=== PATIENT | female | born 1925 | race Caucasian/White ===

== ENCOUNTER 2017-05-02 18:11 | Inpatient (IN) | payer OTHER, MEDICAID ==
[~2017-05-02] VITALS: Ht 137.2 cm; Wt 51.5 kg
[~2017-05-02 18:11] MED LIST: AMLO-511 PO; APIX2.5T PO; ATOR20TA86 PO; FURO20 PO; LORA10TA7 PO; METO25TA3 PO; SLOWK8 PO
[2017-05-02] MEDS ORDERED: PRAV10TA39 PO (18:20)
[2017-05-02 19:53] LABS: BASOPHILS % (AUTO) 0.1 % (0.0-2.0); EOSINOPHILS % (AUTO) 0.4 % (1.0-6.0); HEMATOCRIT 36.6 % (36-46); HEMOGLOBIN 12.4 g/dL (12.0-16.0); LYMPHOCYTES # (AUTO) 1.5 K/uL (1.0-4.8); LYMPHOCYTES % (AUTO) 11.2 % (22.0-44.0); MEAN CORPUSCULAR HEMOGLOBIN 30.8 pg (26.0-34.0); MEAN CORPUSCULAR HGB CONC 33.8 G/dL (31.0-37.0); MEAN CORPUSCULAR VOLUME 91 fL (80-100); MONOCYTES # (AUTO) 0.9 K/uL (0.1-1.0); MONOCYTES % (AUTO) 6.8 % (2.0-9.0); NEUTROPHILS # (AUTO) 10.8 K/uL (1.8-7.7); NEUTROPHILS % (AUTO) 81.5 % (40.0-70.0); PLATELET COUNT (AUTO) 133 K/uL (150-450); RED BLOOD CELL COUNT(AUTO) 4.02 MIL/uL (4.00-5.20); RED CELL DISTRIBUTION WIDTH 14.6 % (11.5-14.5); WHITE BLOOD COUNT (AUTO) 13.3 K/uL (4.5-11.0)
[2017-05-02 19:54] LABS: ANION GAP 8 mmol/L (8-16); CALCIUM, TOTAL 8.3 mg/dL (8.8-10.5); CARBON DIOXIDE 27 mmol/L (22-29); CHLORIDE 100 mmol/L (98-107); CREATININE 1.25 mg/dL (0.60-1.30); GLOMERULAR FILTR. RATE CALC 40 mL/min (>60); SODIUM SERUM 135 mmol/L (136-145); UREA NITROGEN, BLOOD 15 mg/dL (7-18)
[2017-05-02 20:00] LABS: INR 1.2 (0.9-1.1); PROTHROMBIN TIME 12.4 SEC (9.4-11.6)
[2017-05-02] MEDS ORDERED: LEVALBUTEROL HCL 0.63 MG/3 ML NEB SOLUTION NEB ONE (20:00)
[2017-05-02] MEDS ORDERED: IPRATROPIUM BROMIDE 0.5 MG/2.5 ML NEB SOLUTION NEB ONE (20:00)
[2017-05-02 20:08] LABS: B-TYPE NATRIURETIC PEPTIDE 463 pg/mL (0-100)
[2017-05-02] MEDS ORDERED: 0.9% SODIUM CHLORIDE 5 ML NEB SOLUTION NEB ONE (20:14)
[2017-05-02 20:18] LABS: ALANINE AMINOTRANSFERASE 23 U/L (12-78); ALBUMIN 2.9 g/dL (3.4-5.0); ASPARTATE AMINOTRANSFERASE 25 U/L (15-37); BILIRUBIN,TOTAL 0.4 mg/dL (0.1-1.0); CREATINE KINASE MB 0.6 ng/mL (0-5); CREATINE KINASE, TOTAL 79 U/L (26-192); TOTAL PROTEIN, SERUM 7.7 g/dL (6.4-8.2)
[2017-05-02 20:27] LABS: APPEARANCE,URINE CLOUDY (CLEAR); GLUCOSE, URINE (UA) NEGATIVE (NEGATIVE); KETONES,URINE NEGATIVE (NEGATIVE); LEUKOCYTE ESTERASE ,URINE MODERATE (NEGATIVE); OCCULT BLOOD,URINE MODERATE (NEGATIVE); PH,URINE 5.5 (5.0-8.0); PROTEIN,URINE POS 1+ (NEGATIVE)
[2017-05-02 20:28] LABS: ADD UA MICROSCOPIC YES
[2017-05-02 20:31] LABS: SQUAMOUS EPITHELIAL CELL,UR Many /LPF (None Seen); WBC,URINE 26-50 /HPF (0-5)
[2017-05-02 20:41] LABS: LACTIC ACID 1.8 mmol/L (0.4-2.0)
[2017-05-02] MEDS ORDERED: ACETAMINOPHEN 325 MG TABLET PO PRN ×2 (21:00→23:15)
[2017-05-02] MEDS: OXYGEN THERAPY IH SCH (21:00)
[2017-05-02] MEDS ORDERED: ONDANSETRON HCL 4 MG/2 ML VIAL IVP PRN (21:00)
[2017-05-02] MEDS ORDERED: 0.9% SODIUM CHLORIDE 10 ML SYRINGE IVP PRN (21:00)
[2017-05-02] MEDS ORDERED: LEVOFLOXACIN 500 MG/D5% WATER 100 ML IV ONE (21:00)
[2017-05-02 22:03] VITALS: BP 153/79
[2017-05-02] MEDS ORDERED: SODIUM CHLORIDE 0.9% 250 ML IV ONE (22:29)
[2017-05-03] MEDS ORDERED: PNEUMOCOCCAL VACCINE POLYVALENT 0.5 ML VIAL [PPSV23] IM ONE (00:15)
[2017-05-03] MEDS: CefTRIAXone 1 GM/DEXTROSE 50 ML IV SCH (00:55)
[2017-05-03 04:42] VITALS: BP 129/75
[2017-05-03 06:36] LABS: BASOPHILS % (AUTO) 0.1 % (0.0-2.0); EOSINOPHILS % (AUTO) 0.7 % (1.0-6.0); HEMATOCRIT 39.4 % (36-46); HEMOGLOBIN 13.2 g/dL (12.0-16.0); LYMPHOCYTES # (AUTO) 1.2 K/uL (1.0-4.8); LYMPHOCYTES % (AUTO) 9.9 % (22.0-44.0); MEAN CORPUSCULAR HEMOGLOBIN 30.8 pg (26.0-34.0); MEAN CORPUSCULAR HGB CONC 33.5 G/dL (31.0-37.0); MEAN CORPUSCULAR VOLUME 92 fL (80-100); MONOCYTES % (AUTO) 7.7 % (2.0-9.0); NEUTROPHILS # (AUTO) 10.1 K/uL (1.8-7.7); NEUTROPHILS % (AUTO) 81.6 % (40.0-70.0); PLATELET COUNT (AUTO) 134 K/uL (150-450); RED BLOOD CELL COUNT(AUTO) 4.28 MIL/uL (4.00-5.20); RED CELL DISTRIBUTION WIDTH 14.9 % (11.5-14.5); WHITE BLOOD COUNT (AUTO) 12.4 K/uL (4.5-11.0)
[2017-05-03 07:10] LABS: ALBUMIN 2.8 g/dL (3.4-5.0); BILIRUBIN,TOTAL 0.4 mg/dL (0.1-1.0); CALCIUM, TOTAL 8.4 mg/dL (8.8-10.5); CREATININE 0.93 mg/dL (0.60-1.30); MAGNESIUM 1.5 mg/dL (1.80-2.40); TOTAL PROTEIN, SERUM 7.8 g/dL (6.4-8.2)
[2017-05-03 07:33] LABS: POTASSIUM 2.9 mmol/L (3.5-5.1)
[2017-05-03 07:38] VITALS: BP 116/75
[2017-05-03] MEDS: PRAVASTATIN SODIUM 10 MG TABLET PO SCH (08:12)
[2017-05-03] MEDS: FUROSEMIDE 20 MG TABLET PO SCH (08:14)
[2017-05-03] MEDS: LORATADINE 10 MG TABLET PO SCH (08:14)
[2017-05-03] MEDS: AmLODIPine BESYLATE 5 MG TABLET PO SCH (08:14)
[2017-05-03] MEDS: METOPROLOL SUCCINATE 25 MG ER TABLET PO SCH ×2 (08:14→21:15)
[2017-05-03] MEDS: POTASSIUM CHLORIDE 8 MEQ ER TABLET PO SCH ×2 (08:14→21:15)
[2017-05-03] MEDS: AZITHROMYCIN 250 MG TABLET PO SCH (08:15)
[2017-05-03] MEDS ORDERED: POTASSIUM CHLORIDE 20 MEQ ER TABLET PO PRN (09:00)
[2017-05-03] MEDS: APIXABAN 2.5 MG TABLET PO SCH ×2 (09:00→21:00)
[2017-05-03] MEDS ORDERED: IPRATROPIUM BROMIDE 0.5 MG/2.5 ML NEB SOLUTION NEB PRN (09:00)
[2017-05-03] MEDS ORDERED: ALBUTEROL SULFATE 2.5 MG/0.5 ML NEB SOLUTION NEB PRN (09:00)
[2017-05-03] MEDS: OXYGEN THERAPY IH SCH (09:11)
[2017-05-03 11:26] VITALS: BP 108/65
[2017-05-03 15:40] VITALS: BP 111/60
[2017-05-03] MEDS ORDERED: MAGNESIUM SULFATE 2 GM in DEXTROSE 5%-WATER 50 ML IV ONE (16:45)
[2017-05-03 20:13] VITALS: BP 93/55
[2017-05-04] VITALS (7 sets, daily range): BP systolic 106–147; BP diastolic 61–76
[2017-05-04] MEDS: CefTRIAXone 1 GM/DEXTROSE 50 ML IV SCH (01:09)
[2017-05-04 06:28] LABS: ANION GAP 8 mmol/L (8-16); CALCIUM, TOTAL 8.4 mg/dL (8.8-10.5); CARBON DIOXIDE 30 mmol/L (22-29); CHLORIDE 104 mmol/L (98-107); CREATININE 0.88 mg/dL (0.60-1.30); GLOMERULAR FILTR. RATE CALC > 60 mL/min (>60); POTASSIUM 3.7 mmol/L (3.5-5.1); SODIUM SERUM 142 mmol/L (136-145); UREA NITROGEN, BLOOD 12 mg/dL (7-18)
[2017-05-04 06:47] LABS: BASOPHILS % (AUTO) 0.5 % (0.0-2.0); EOSINOPHILS % (AUTO) 3.7 % (1.0-6.0); HEMATOCRIT 39.2 % (36-46); HEMOGLOBIN 13.1 g/dL (12.0-16.0); LYMPHOCYTES # (AUTO) 1.9 K/uL (1.0-4.8); LYMPHOCYTES % (AUTO) 20.2 % (22.0-44.0); MEAN CORPUSCULAR HEMOGLOBIN 30.7 pg (26.0-34.0); MEAN CORPUSCULAR HGB CONC 33.5 G/dL (31.0-37.0); MEAN CORPUSCULAR VOLUME 92 fL (80-100); MONOCYTES # (AUTO) 0.7 K/uL (0.1-1.0); MONOCYTES % (AUTO) 8.1 % (2.0-9.0); NEUTROPHILS # (AUTO) 6.3 K/uL (1.8-7.7); NEUTROPHILS % (AUTO) 67.5 % (40.0-70.0); PLATELET COUNT (AUTO) 153 K/uL (150-450); RED BLOOD CELL COUNT(AUTO) 4.27 MIL/uL (4.00-5.20); WHITE BLOOD COUNT (AUTO) 9.3 K/uL (4.5-11.0)
[2017-05-04] MEDS: PRAVASTATIN SODIUM 10 MG TABLET PO SCH (08:22)
[2017-05-04] MEDS: LORATADINE 10 MG TABLET PO SCH (08:22)
[2017-05-04] MEDS: FUROSEMIDE 20 MG TABLET PO SCH (08:22)
[2017-05-04] MEDS: AZITHROMYCIN 250 MG TABLET PO SCH (08:22)
[2017-05-04] MEDS: APIXABAN 2.5 MG TABLET PO SCH ×2 (08:22→20:22)
[2017-05-04] MEDS: POTASSIUM CHLORIDE 8 MEQ ER TABLET PO SCH ×2 (08:22→20:22)
[2017-05-04] MEDS: METOPROLOL SUCCINATE 25 MG ER TABLET PO SCH ×2 (08:23→20:22)
[2017-05-04] MEDS: AmLODIPine BESYLATE 5 MG TABLET PO SCH (10:44)
[2017-05-05] MEDS: CefTRIAXone 1 GM/DEXTROSE 50 ML IV SCH ×2 (00:31→23:16)
[2017-05-05 04:39] VITALS: BP 128/58
[2017-05-05 07:31] VITALS: BP 128/69
[2017-05-05] MEDS: LORATADINE 10 MG TABLET PO SCH (08:40)
[2017-05-05] MEDS: APIXABAN 2.5 MG TABLET PO SCH ×2 (08:40→20:35)
[2017-05-05] MEDS: AmLODIPine BESYLATE 5 MG TABLET PO SCH (08:41)
[2017-05-05] MEDS: FUROSEMIDE 20 MG TABLET PO SCH (08:41)
[2017-05-05] MEDS: PRAVASTATIN SODIUM 10 MG TABLET PO SCH (08:41)
[2017-05-05] MEDS: POTASSIUM CHLORIDE 8 MEQ ER TABLET PO SCH ×2 (08:42→20:35)
[2017-05-05] MEDS: METOPROLOL SUCCINATE 25 MG ER TABLET PO SCH ×2 (08:43→20:35)
[2017-05-05] MEDS: AZITHROMYCIN 250 MG TABLET PO SCH (08:43)
[2017-05-05 11:31] VITALS: BP 113/60
[2017-05-05] MEDS ORDERED: FUROSEMIDE 20 MG/2 ML VIAL IVP ONE (15:45)
[2017-05-05] MEDS ORDERED: POTASSIUM CHLORIDE 10% 40 MEQ/30 ML LIQUID UDCUP PO ONE (15:45)
[2017-05-05] MEDS ORDERED: DIGOXIN 250 MCG/ML 2 ML AMP IVP ONE (15:45)
[2017-05-05 16:05] VITALS: BP 123/73
[2017-05-05] MEDS ORDERED: LEVALBUTEROL HCL 0.63 MG/3 ML NEB SOLUTION NEB PRN (19:15)
[2017-05-05 19:51] VITALS: BP 124/70
[2017-05-06 00:01] VITALS: BP 113/74
[2017-05-06 04:43] VITALS: BP 120/61
[2017-05-06 05:55] LABS: BASOPHILS # (AUTO) 0.04 K/uL (0.00-0.20); BASOPHILS % (AUTO) 0.6 % (0.0-2.0); EOSINOPHILS # (AUTO) 0.25 K/uL (0.00-0.70); HEMATOCRIT 41.2 % (36-46); HEMOGLOBIN 13.4 g/dL (12.0-16.0); LYMPHOCYTES # (AUTO) 2.1 K/uL (1.0-4.8); MEAN CORPUSCULAR HEMOGLOBIN 29.8 pg (26.0-34.0); MEAN CORPUSCULAR HGB CONC 32.5 G/dL (31.0-37.0); MEAN CORPUSCULAR VOLUME 92 fL (80-100); MONOCYTES # (AUTO) 0.5 K/uL (0.1-1.0); MONOCYTES % (AUTO) 6.7 % (2.0-9.0); NEUTROPHILS # (AUTO) 4.2 K/uL (1.8-7.7); NEUTROPHILS % (AUTO) 59.2 % (40.0-70.0); PLATELET COUNT (AUTO) 185 K/uL (150-450); RED CELL DISTRIBUTION WIDTH 14.9 % (11.5-14.5); WHITE BLOOD COUNT (AUTO) 7.1 K/uL (4.5-11.0)
[2017-05-06 06:14] LABS: ALANINE AMINOTRANSFERASE 21 U/L (12-78); ALBUMIN 2.7 g/dL (3.4-5.0); ANION GAP 11 mmol/L (8-16); ASPARTATE AMINOTRANSFERASE 25 U/L (15-37); BILIRUBIN,TOTAL 0.2 mg/dL (0.1-1.0); CALCIUM, TOTAL 8.8 mg/dL (8.8-10.5); CARBON DIOXIDE 29 mmol/L (22-29); CHLORIDE 103 mmol/L (98-107); GLOMERULAR FILTR. RATE CALC > 60 mL/min (>60); POTASSIUM 3.5 mmol/L (3.5-5.1); SODIUM SERUM 143 mmol/L (136-145); TOTAL PROTEIN, SERUM 7.9 g/dL (6.4-8.2); UREA NITROGEN, BLOOD 13 mg/dL (7-18)
[2017-05-06 06:19] LABS: B-TYPE NATRIURETIC PEPTIDE 377 pg/mL (0-100)
[2017-05-06 07:35] VITALS: BP 113/62
[2017-05-06 08:33] VITALS: BP 125/76
[2017-05-06] MEDS: AmLODIPine BESYLATE 5 MG TABLET PO SCH (08:48)
[2017-05-06] MEDS: METOPROLOL SUCCINATE 25 MG ER TABLET PO SCH (08:48)
[2017-05-06] MEDS: LORATADINE 10 MG TABLET PO SCH (08:48)
[2017-05-06] MEDS: PRAVASTATIN SODIUM 10 MG TABLET PO SCH (08:48)
[2017-05-06] MEDS: APIXABAN 2.5 MG TABLET PO SCH (08:48)
[2017-05-06] MEDS: AZITHROMYCIN 250 MG TABLET PO SCH (08:48)
[2017-05-06] MEDS ORDERED: FUROSEMIDE 40 MG TABLET PO SCH (09:00)
[2017-05-06] MEDS ORDERED: POTASSIUM CHLORIDE 10 MEQ ER TABLET PO SCH (09:00)
[2017-05-06 11:29] VITALS: BP 127/69
[2017-05-06] MEDS ORDERED: FURO40 PO (13:01)
[2017-05-06] MEDS ORDERED: LEVO500 PO (13:03)
== END 2017-05-06 13:50 | disposition home or self-care (01) | DRG 871 ==
LOC: EMS 18:13 → 5N 21:32
PROVIDERS: ADMIT Family Medicine; ATTEND Family Medicine
DX: A41.9 Sepsis, unspecified organism (principal); J18.9 Pneumonia, unspecified organism; I50.31 Acute diastolic (congestive) heart failure; I48.91 Unspecified atrial fibrillation; N39.0 Urinary tract infection, site not specified; I11.0 Hypertensive heart disease with heart failure; I35.0 Nonrheumatic aortic (valve) stenosis; E78.5 Hyperlipidemia, unspecified; J45.909 Unspecified asthma, uncomplicated; Z28.21 Immunization not carried out because of patient refusal
CPT/HCPCS: 83605; 83735; 84132; 87040; 87086; 93005; 93306; 94640; 96365; 99285; J0696; J1160; J1940; J1956; J3475; J7050; J7060